=== PATIENT | female | born 1985 | race Caucasian/White ===

== ENCOUNTER 2018-06-16 18:15 | Emergency (ER) | payer MEDICARE ==
[2018-06-16 18:35] VITALS: BP 118/86
--- NOTE | 2018-06-16 19:28 | ERPHSYRPT ---
- History of Present Illness Time Seen by Provider: 06/16/18 19:23 Source: patient, other Exam Limitations: no limitations Patient Subjective Stated Complaint: states fell on concrete four days ago and injured right hand. Triage Nursing Assessment: ambulated to room per self. skin w/d, color normal, resp easy. moderate swelling noted to right hand with two very small abrasions. no active bleeding at this time. is able to move fingers but is having lots of pain. Physician History: The patient is a left-handed 33-year-old female with a friend complaining of falling off her porch onto the concrete walkway on Saturday evening, causing pain and swelling to her right hand. The right hand has been hurting and swelling more over the last 3 days. She's been taking ibuprofen and Tylenol without relief. She is able to move her fingers and make a fist but it hurts significantly to do so. Occurred: days ago (3) Reason for Fall: lost balance, fell from height Injuries/Pain Location: upper extremity (right hand) Loss of Consciousness: no loss of consciousness Quality: sharpness Severity of Pain-Max: severe Severity of Pain-Current: severe Modifying Factors: Improves With: pain medication Associated Symptoms (Fall): denies symptoms Allergies/Adverse Reactions: No Known Drug Allergies Allergy (Unverified 06/16/18 18:35) Hx Tetanus, Diphtheria Vaccination/Date Given: No (2010) Hx Influenza Vaccination/Date Given: No Hx Pneumococcal Vaccination/Date Given: No - Review of Systems Constitutional: No Fever, No Chills Eyes: No Symptoms Ears, Nose, & Throat: No Symptoms Respiratory: No Cough, No Dyspnea Cardiac: No Chest Pain, No Edema, No Syncope Abdominal/Gastrointestinal: No Abdominal Pain, No Nausea, No Vomiting, No Diarrhea Genitourinary Symptoms: No Dysuria Musculoskeletal: Fall, Injury, Joint Pain Skin: No Rash Neurological: No Dizziness, No Focal Weakness, No Sensory Changes Psychological: No Symptoms Endocrine: No Symptoms Hematologic/Lymphatic: No Symptoms Immunological/Allergic: No Symptoms All Other Systems: Reviewed and Negative - Past Medical History Pertinent Past Medical History: No - Past Surgical History Past Surgical History: Yes Female Surgical History: Section - Social History Smoking Status: Current every day smoker How long have you smoked: 20 Exposure to second hand smoke: Yes Drug Use: none Patient Lives Alone: No - Female History Hx Last Menstrual Period: 05/27/18 Hx Now: No - Nursing Vital Signs Nursing Vital Signs: Initial Vital Signs Temperature 98.3 F 06/16/18 18:23 Pulse Rate 86 06/16/18 18:23 Respiratory Rate 16 06/16/18 18:23 Blood Pressure 118/86 06/16/18 18:23 O2 Sat by Pulse Oximetry 99 06/16/18 18:23 Pain Scale Pain Intensity 8 - [place] Coma Score Best Eye Response ([place]): (4) open spontaneously Best Verbal Response ([place]): (5) oriented Best Motor Response ([place]): (6) obeys commands [place] Total: 15 - Physical Exam General Appearance: mild distress Head Injury: no evidence of injury Eye Exam: PERRL/EOMI ENT Exam: airway nml Neck Exam: normal inspection, No tenderness Respiratory/Chest Exam: normal breath sounds, No chest tenderness, No respiratory distress Cardiovascular Exam: normal heart sounds, regular rate/rhythm Gastrointestinal Exam: soft, No tenderness, No distention, No guarding, No ecchymosis Rectal Exam: not done Back Exam: normal inspection, No vertebral tenderness Extremity Exam: contusions, joint swelling, limited range of motion, evidence of injury, swelling, tenderness, other (Examination of the right hand: There is significant swelling, bruising,and tenderness over the second and third MCP joint. There is limited range of motion of the right index finger secondary to pain. There is no obvious deformity.) Neurologic Exam: alert, oriented x 3, cooperative, sensation nml, No motor deficits Skin Exam: abrasion (There is mild superficial abrasion over the right MCP joint.) SpO2 Interpretation: normal SpO2: 99 Oxygen Delivery: Room Air - Radiology Exams Right Hand X-ray Interpretation: Interpreted by me, Non-displaced Fracture (comminuted non- displaced fractue of distal right 2nd metacarpal) Ordered Tests: Active Orders 24 hr Category Date Time Status HAND (MINIMUM 3 VIEWS) Stat Exams 06/16/18 18:45 Taken Medication Summary Discontinued Medications Generic Name Dose Route Start Last Admin Trade Name Freq PRN Reason Stop Dose Admin Hydrocodone Bitart/Acetaminophen 2 tab 06/16/18 19:31 06/16/18 19:43 [place] 5/325 Mg PO 06/16/18 19:32 2 tab SENT HOME W/ PATIENT ONE Administration Hydrocodone Bitart/Acetaminophen Confirm 06/16/18 19:39 [place] 5/325 Mg Administered 06/16/18 19:40 Dose 2 tab .ROUTE .STK-MED ONE Amoxicillin/Clavulanate Potassium 875 mg 06/16/18 19:31 06/16/18 19:42 Augmentin 875-125 Tablet PO 06/16/18 19:32 875 mg STAT ONE Administration Amoxicillin/Clavulanate Potassium Confirm 06/16/18 19:39 Augmentin 875-125 Tablet Administered 06/16/18 19:40 Dose 875 mg .ROUTE .STK-MED ONE Diphtheria/Tetanus/Acell Pertussis 0.5 ml 06/16/18 19:30 06/16/18 19:46 Adacel Vial IM 06/16/18 19:31 0.5 ml .ONCE ONE Administration Diphtheria/Tetanus/Acell Pertussis Confirm 06/16/18 19:39 Adacel Vial Administered 06/16/18 19:40 Dose 0.5 ml IM .STK-MED ONE Ketorolac Tromethamine 60 mg 06/16/18 19:30 06/16/18 19:43 Toradol 30 Mg Injection IM 06/16/18 19:31 60 mg STAT ONE Administration Ketorolac Tromethamine Confirm 06/16/18 19:39 Toradol 30 Mg Injection Administered 06/16/18 19:40 Dose 60 mg .ROUTE .STK-MED ONE - Progress Progress: improved Progress Note: 06/16/18 19:48 Patient was given Toradol 60 mg IM. Counseled pt/family regarding: rad results - Departure Time of Disposition: 19:49 Departure Disposition: Home Clinical Impression: Right hand fracture Condition: Stable Critical Care Time: No Referrals: DOCTOR,NO FAMILY [Primary Care Provider] - Additional Instructions: You have a nondisplaced comminuted fracture of a bone in your right hand. You were given Toradol 60 mgIM and Augmentin 875 orally in the ER. Take [place] one tablet every 4-6 hours as needed. Take naproxen 500 mg every 12 hours as needed. Take Augmentin 875 2 times a day for 10 days. Your hand was placed in a fiberglass splint. Keep the fiber glass splint in place for 6 weeks until the bone heals. Followup with your primary medical doctor next week. Your also given a tetanus vaccination in the ER. Prescriptions: Amoxicillin/Potassium Clav [Augmentin 875-125 Tablet] 875 mg PO BID #20 tablet Naproxen 500 mg PO BID PRN #30 tablet
[2018-06-16] MEDS ORDERED: TORAdol 30 mg Injection IM ONE (19:30)
[2018-06-16] MEDS ORDERED: Adacel Vial IM ONE ×2 (19:30→19:39)
[2018-06-16] MEDS ORDERED: Augmentin 875-125 Tablet PO ONE (19:31)
[2018-06-16] MEDS ORDERED: NORCO 5/325 MG PO ONE (19:31)
[2018-06-16] MEDS ORDERED: NORCO 5/325 MG ONE (19:39)
[2018-06-16] MEDS ORDERED: Augmentin 875-125 Tablet ONE (19:39)
[2018-06-16] MEDS ORDERED: TORAdol 30 mg Injection ONE (19:39)
[2018-06-16 20:08] VITALS: PULSE 88; O2SAT 100
--- NOTE | 2018-06-17 08:55 | XRAY ---
Indication: Pain/swelling following fall 3 days ago. Comparison: None 3 views of the right hand using portable technique demonstrates nondisplaced fracture involving the distal shaft of the 2nd metacarpal with soft tissue swelling. No other bony, articular, or soft tissue abnormalities.
== END 2018-06-16 20:40 | disposition home or self-care (01) ==
LOC: EDBD 18:15 → ED 18:15
DX: S62.350A Nondisplaced fracture of shaft of second metacarpal bone, right hand, initial encounter for closed fracture (principal); S60.410A Abrasion of right index finger, initial encounter; W17.89XA Other fall from one level to another, initial encounter; Y92.008 Other place in unspecified non-institutional (private) residence as the place of occurrence of the external cause; A35 Other tetanus; Z23 Encounter for immunization
CPT/HCPCS: 29126; 73130; 90471; 90715; 96372; 99284; J1885; A9270-GY